=== PATIENT | male | born 1995 | race African-American/Black ===

== ENCOUNTER → 2017-04-08 | Outpatient (CLI) | payer OTHER | LOC: COL.VAS 07:43 | DX: I35.8 Other nonrheumatic aortic valve disorders (principal) ==

== ENCOUNTER 2017-12-29 07:09 | Emergency (ER) | payer OTHER ==
[~2017-12-29] VITALS: Ht 167.6 cm; Wt 97.7 kg
[2017-12-29 07:12] VITALS: BP 130/69; TEMP 98.1
[2017-12-29 08:12] LABS: COLLECTION METHOD CLEAN CATCH
[2017-12-29 08:19] LABS: MUCOUS Present /lpf; PH 5 (5-8); SQUAMOUS EPITHELIAL None Seen /hpf; URINE APPEARANCE Clear; URINE BACTERIA None Seen /hpf; URINE BILIRUBIN Negative (NEGATIVE); URINE BLOOD Negative (NEGATIVE); URINE COLOR Yellow; URINE GLUCOSE Negative (NEGATIVE); URINE KETONE Negative (NEGATIVE); URINE LEUKOCYTE ESTERASE Negative (NEGATIVE); URINE NITRATE Negative (NEGATIVE); URINE PROTEIN(semi-quant) Negative (NEGATIVE); URINE RBC 0-2 /hpf; URINE UROBILINOGEN Negative (NEGATIVE)
[2017-12-29 08:49] VITALS: PULSE 60
== END 2017-12-29 08:51 | disposition home or self-care (01) ==
LOC: COL.ER 07:09
PROVIDERS: Physician Assistant
DX: N34.2 Other urethritis (principal)

== ENCOUNTER 2018-01-02 07:34 | Emergency (ER) | payer OTHER ==
[~2018-01-02] VITALS: Ht 167.6 cm; Wt 97.3 kg
[2018-01-02 07:37] VITALS: BP 135/81; TEMP 98.1
[2018-01-02 08:16] LABS: COLLECTION METHOD CLEAN CATCH
[2018-01-02 08:31] LABS: MUCOUS Present /lpf; PH 6 (5-8); SQUAMOUS EPITHELIAL None Seen /hpf; URINE APPEARANCE Clear; URINE BACTERIA None Seen /hpf; URINE BILIRUBIN Negative (NEGATIVE); URINE BLOOD Negative (NEGATIVE); URINE COLOR Yellow; URINE GLUCOSE Negative (NEGATIVE); URINE KETONE Negative (NEGATIVE); URINE LEUKOCYTE ESTERASE Negative (NEGATIVE); URINE NITRATE Negative (NEGATIVE); URINE PROTEIN(semi-quant) Negative (NEGATIVE); URINE UROBILINOGEN Negative (NEGATIVE)
[2018-01-02] MEDS ORDERED: LEVAQUIN 750MG750 M1 PO (08:42)
[2018-01-02] MEDS ORDERED: ZOVIRAX400 MG PO (08:42)
[2018-01-02 09:46] VITALS: PULSE 90
== END 2018-01-02 09:15 | disposition home or self-care (01) ==
LOC: COL.ER 07:34
PROVIDERS: Emergency Medicine
DX: N50.9 Disorder of male genital organs, unspecified (principal); R59.0 Localized enlarged lymph nodes

== ENCOUNTER 2018-01-17 10:18 | Emergency (ER) | payer OTHER ==
[~2018-01-17] VITALS: Ht 167.6 cm; Wt 97.7 kg
[~2018-01-17 10:18] MED LIST: LEVAQUIN 750MG750 M1 PO; ZOVIRAX400 MG PO
[2018-01-17 10:32] VITALS: BP 133/71; TEMP 99.3
[2018-01-17 12:28] VITALS: PULSE 68
== END 2018-01-17 12:32 | disposition home or self-care (01) ==
LOC: COL.ER 10:18
DX: Z20.2 Contact with and (suspected) exposure to infections with a predominantly sexual mode of transmission (principal)

== ENCOUNTER 2018-02-06 23:25 | Emergency (ER) | payer OTHER ==
[~2018-02-06] VITALS: Ht 167.6 cm; Wt 97.7 kg
[2018-02-06 23:32] VITALS: BP 130/72; TEMP 99.3
[2018-02-06] MEDS ORDERED: AMOXICILLIN 8751 TAB PO (23:33)
[2018-02-07 01:05] VITALS: PULSE 78
== END 2018-02-07 01:06 | disposition home or self-care (01) ==
LOC: COL.ER 23:25
DX: S61.411A Laceration without foreign body of right hand, initial encounter (principal); T81.4XXA Infection following a procedure, initial encounter; Y04.0XXA Assault by unarmed brawl or fight, initial encounter
CPT/HCPCS: J0295

== ENCOUNTER 2018-07-25 05:24 | Day surgery (SDC) | payer OTHER ==
[~2018-07-25] VITALS: Ht 167.6 cm; Wt 104.3 kg
[2018-07-25] VITALS (9 sets, daily range): BP systolic 125–136; BP diastolic 43–71; PULSE 79–98; TEMP 98.7–99.2
[~2018-07-25 05:24] MED LIST changes: +AMOXICILLIN 8751 TAB PO
== END 2018-07-25 13:41 | disposition home or self-care (01) ==
LOC: SDCO 05:24
DX: S83.512A Sprain of anterior cruciate ligament of left knee, initial encounter (principal); Z82.5 Family history of asthma and other chronic lower respiratory diseases; Z82.49 Family history of ischemic heart disease and other diseases of the circulatory system; Z82.61 Family history of arthritis; G89.18 Other acute postprocedural pain
CPT/HCPCS: C1713; J0171; J0690; J1170; J2250; J2405; J2704; J2795; J3010; J7120

== ENCOUNTER → 2018-08-15 | Outpatient (CLI) | payer OTHER | LOC: COL.VAS 08:00 | DX: M79.89 Other specified soft tissue disorders (principal) ==

== ENCOUNTER → 2018-09-28 | Outpatient (CLI) | payer OTHER ==
[~2018-09-28] MED LIST changes: +NORCO 325 MG-51 TAB PO
[2018-09-28 13:06] LABS: BASO % 0.4 % (0.0-2.0); EOS # 0.1 (0.0-0.7); GRAN # 4.3 (1.4-6.5); GRAN % 54.1 % (42.2-75.2); HEMATOCRIT 42.2 % (42.0-52.0); HEMOGLOBIN 13.4 g/dl (13.5-18.0); LYMPH # 2.3 (1.2-3.4); LYMPH % 29.3 % (20.0-51.0); MEAN CELL VOLUME 72 fl (80.0-100.0); MEAN CORPUSCULAR HEMOGLOBIN 23 pg (27.0-31.0); MEAN CORPUSCULAR HGB CONC 32 g/dl (33.0-37.0); MEAN PLATELET VOLUME 9.8 fl (7.4-10.4); MONO # 1.1 (0.1-0.6); MONO % 14.3 % (1.7-9.3); PLATELET COUNT 438 K/mm3 (130-400); RED BLOOD COUNT 5.86 M/mm3 (4.20-5.60); REDCELL DISTRIBUTION WIDTH-CV 15.3 % (11.5-14.5)
[2018-09-28 13:27] LABS: ERYTHROCYTE SEDIMENTATION RATE 35 mm/hr (0-15)
== END ==
LOC: COL.LAB 12:11
PROVIDERS: Orthopaedic Surgery Sports Medicine
DX: Z01.812 Encounter for preprocedural laboratory examination (principal); M25.562 Pain in left knee

== ENCOUNTER → 2018-10-03 | Outpatient (REF) | LOC: ZMSC 12:57 | DX: Z01.89 Encounter for other specified special examinations (principal) ==

== ENCOUNTER → 2018-11-10 | Outpatient (CLI) | payer OTHER | LOC: COL.VAS 12:51 | DX: Z13.6 Encounter for screening for cardiovascular disorders (principal); M79.662 Pain in left lower leg; Z98.890 Other specified postprocedural states ==

== ENCOUNTER → 2018-11-13 | Outpatient (CLI) | payer OTHER ==
[2018-11-13 15:44] LABS: BASO % 0.3 % (0.0-2.0); EOS # 0.2 (0.0-0.7); EOS % 3.7 % (0-4.0); GRAN # 2.8 (1.4-6.5); GRAN % 46.8 % (42.2-75.2); HEMATOCRIT 40.3 % (42.0-52.0); HEMOGLOBIN 12.5 g/dl (13.5-18.0); LYMPH # 2.3 (1.2-3.4); LYMPH % 38.8 % (20.0-51.0); MEAN CELL VOLUME 72 fl (80.0-100.0); MEAN CORPUSCULAR HEMOGLOBIN 22 pg (27.0-31.0); MEAN CORPUSCULAR HGB CONC 31 g/dl (33.0-37.0); MEAN PLATELET VOLUME 9.4 fl (7.4-10.4); MONO # 0.6 (0.1-0.6); MONO % 10.2 % (1.7-9.3); PLATELET COUNT 312 K/mm3 (130-400); RED BLOOD COUNT 5.58 M/mm3 (4.20-5.60); REDCELL DISTRIBUTION WIDTH-CV 16.5 % (11.5-14.5)
[2018-11-13 16:22] LABS: ERYTHROCYTE SEDIMENTATION RATE 16 mm/hr (0-15)
== END ==
LOC: COL.LAB 15:21
PROVIDERS: Orthopaedic Surgery Sports Medicine
DX: M25.462 Effusion, left knee (principal); Z98.890 Other specified postprocedural states

== ENCOUNTER 2018-11-29 10:57 | Inpatient (IN) | payer OTHER | END 2018-11-30 23:00 | disposition home or self-care (01) | DRG 863 | LOC: SURG 10:57 | PROVIDERS: ADMIT Orthopaedic Surgery Sports Medicine | DX: T81.41XA Infection following a procedure, superficial incisional surgical site, initial encounter (principal); B95.61 Methicillin susceptible Staphylococcus aureus infection as the cause of diseases classified elsewhere; F41.8 Other specified anxiety disorders ==

== ENCOUNTER 2018-12-03 08:05 | Outpatient (RCR) | payer OTHER ==
[2018-12-01 08:43] VITALS: BP 122/75; PULSE 92; TEMP 98.5
[2018-12-02 08:28] VITALS: BP 132/70; PULSE 98; TEMP 98.6
[~2018-12-03] VITALS: Ht 167.6 cm; Wt 99.0 kg
[~2018-12-03 08:05] MED LIST changes: +ASPIRIN E.C. 8181 MG PO; +CEFAZOLIN SODI100 ML IV; +DILAUDID 2MG/2 MG/M1 IV; +MOBIC15 MG PO; +ROCEPHIN 2GM VIAL21 IJ
[2018-12-04 08:35] LABS: HEMATOCRIT 40.8 % (42.0-52.0); HEMOGLOBIN 12.5 g/dl (13.5-18.0); MEAN CELL VOLUME 72 fl (80.0-100.0); MEAN CORPUSCULAR HEMOGLOBIN 22 pg (27.0-31.0); MEAN CORPUSCULAR HGB CONC 31 g/dl (33.0-37.0); PLATELET COUNT 271 K/mm3 (130-400); RED BLOOD COUNT 5.64 M/mm3 (4.20-5.60); REDCELL DISTRIBUTION WIDTH-CV 16.5 % (11.5-14.5)
[2018-12-04 08:39] VITALS: BP 116/60; PULSE 81; TEMP 98.7
--- NOTE | 2018-12-04 08:45 | NUR ---
Oozing noted from incision on LLE. Covered with gauze and wrapped with coban. Pt is going to Dr. Quezada's office after abx today.
[2018-12-04 08:47] LABS: ALBUMIN 4.4 gm/dL (3.5-5.0); BILIRUBIN,TOTAL 0.2 mg/dL (0.0-1.0); C-REACTIVE PROTEIN 1.4 mg/dL (0.0-0.9); CALCIUM 9.3 mg/dL (8.4-10.2); CREATININE, serum 0.89 mg/dL (0.66-1.25); POTASSIUM 3.9 mmol/L (3.4-5.0); TOTAL PROTEIN 8.1 gm/dL (6.4-8.2)
[2018-12-04 09:01] LABS: ERYTHROCYTE SEDIMENTATION RATE 7 mm/hr (0-15)
[2018-12-05 08:34] VITALS: BP 109/70; PULSE 77; TEMP 98.3
--- NOTE | 2018-12-06 08:27 | NUR ---
Spoke with Jelena,Surgical pathology secretary/transcriptionist to confirm pt to have surg.Per report of pt he ruthy ellison.Requested from Jelena new orders for abx to continue if pt stays overnight in hospital.
[2018-12-08] MEDS ORDERED: CUBICIN 500MG500 MG IV (16:14)
[2018-12-12] MEDS ORDERED: ROCEPHIN 2GM VIAL21 IJ (13:22)
== END 2018-12-06 15:22 | disposition home or self-care (01) ==
LOC: EUO 12-04 08:00
PROVIDERS: Orthopaedic Surgery Sports Medicine
DX: M24.20 Disorder of ligament, unspecified site (principal); B99.9 Unspecified infectious disease
CPT/HCPCS: J0696

== ENCOUNTER 2018-12-12 13:28 | Emergency (ER) | payer OTHER ==
[~2018-12-12] VITALS: Ht 167.6 cm; Wt 97.7 kg
[~2018-12-12 13:28] MED LIST changes: +CUBICIN 500MG500 MG IV
[2018-12-12 13:36] VITALS: BP 123/74; PULSE 71; TEMP 98.4
== END 2018-12-12 17:35 | disposition left against medical advice (07) ==
LOC: COL.ER 13:28
DX: R07.9 Chest pain, unspecified (principal)
CPT/HCPCS: J1885; J7030

== ENCOUNTER 2018-12-24 12:24 | Outpatient (RCR) | payer OTHER ==
[2018-12-11 14:07] VITALS: BP 107/55; PULSE 81; TEMP 98.9
[2018-12-11 14:09] LABS: HEMATOCRIT 41.5 % (42.0-52.0); HEMOGLOBIN 12.8 g/dl (13.5-18.0); MEAN CELL VOLUME 72 fl (80.0-100.0); MEAN CORPUSCULAR HEMOGLOBIN 22 pg (27.0-31.0); MEAN CORPUSCULAR HGB CONC 31 g/dl (33.0-37.0); MEAN PLATELET VOLUME 9.5 fl (7.4-10.4); PLATELET COUNT 290 K/mm3 (130-400); RED BLOOD COUNT 5.75 M/mm3 (4.20-5.60); REDCELL DISTRIBUTION WIDTH-CV 17.2 % (11.5-14.5)
[2018-12-11 14:21] LABS: ALANINE AMINOTRANSFERASE 25 U/L (21-72); ALBUMIN 4.5 gm/dL (3.5-5.0); ALKALINE PHOSPHATASE 62 U/L (50-136); ANION GAP 8 mmol/L (7-16); AST,SGOT 32 U/L (15-37); BILIRUBIN,TOTAL 0.4 mg/dL (0.0-1.0); BLOOD UREA NITROGEN 15 mg/dL (9-20); CALCIUM 9.3 mg/dL (8.4-10.2); CARBON DIOXIDE 29 mmol/L (22-30); CHLORIDE 103 mmol/L (98-107); CREATININE, serum 0.86 mg/dL (0.66-1.25); GLUCOSE 98 mg/dL (74-106); POTASSIUM 3.6 mmol/L (3.4-5.0); SODIUM 140 mmol/L (137-145); TOTAL PROTEIN 8.2 gm/dL (6.4-8.2)
[2018-12-11 14:22] LABS: C-REACTIVE PROTEIN < 0.5 mg/dL (0.0-0.9)
[2018-12-11 14:33] LABS: ERYTHROCYTE SEDIMENTATION RATE 1 mm/hr (0-15)
[2018-12-12 13:00] VITALS: BP 123/61; PULSE 71; TEMP 98
[2018-12-13 12:16] VITALS: BP 116/82; PULSE 73; TEMP 98.4
[2018-12-14 11:20] VITALS: BP 138/80; PULSE 79; TEMP 98
--- NOTE | 2018-12-14 11:29 | NUR ---
per pt report he has had some drainage from knee.Per pt report he is going to Ortho office after this apt to see if they will look at knee.
--- NOTE | 2018-12-14 12:02 | NUR ---
Pt inquired if he was sopose to have apt with Dr. Jovel.Per pt he has not been given an apt time.This nurse called office,spoke with Molly.Per her report pt had been receiveing wound care, missed one apt,cancelled another.Per Molly she reports pt sopose to schedule apt with Dr. Jovel.This nurse gave pt office number to call and clarify.
[2018-12-15 10:08] VITALS: BP 129/58; PULSE 70; TEMP 98.4
--- NOTE | 2018-12-15 10:25 | NUR ---
Pt refused to go to ED for chest pain. Pt is going to Dr. Loza office now. [facility]. Pt agreed to go to ED at [place] today or our ED if weather prohibits travel to [place].
--- NOTE | 2018-12-15 10:30 | NUR ---
L FA PIV wrapped with coban and left in for abx tomorrow. Pt discharged per ambulation.
[2018-12-16 08:41] VITALS: BP 136/63; PULSE 66; TEMP 98.3
[2018-12-17 08:46] VITALS: BP 137/94; PULSE 58; TEMP 98.2
[2018-12-18 10:50] VITALS: BP 120/67; PULSE 70; TEMP 98.3
[2018-12-18 11:03] LABS: HEMATOCRIT 41.3 % (42.0-52.0); HEMOGLOBIN 12.8 g/dl (13.5-18.0); MEAN CELL VOLUME 73 fl (80.0-100.0); MEAN CORPUSCULAR HEMOGLOBIN 23 pg (27.0-31.0); MEAN CORPUSCULAR HGB CONC 31 g/dl (33.0-37.0); MEAN PLATELET VOLUME 9.8 fl (7.4-10.4); PLATELET COUNT 258 K/mm3 (130-400); REDCELL DISTRIBUTION WIDTH-CV 17.5 % (11.5-14.5)
[2018-12-18 11:17] LABS: ALANINE AMINOTRANSFERASE 31 U/L (21-72); ALBUMIN 4.4 gm/dL (3.5-5.0); ALKALINE PHOSPHATASE 60 U/L (50-136); ANION GAP 9 mmol/L (7-16); AST,SGOT 31 U/L (15-37); BILIRUBIN,TOTAL 0.5 mg/dL (0.0-1.0); BLOOD UREA NITROGEN 15 mg/dL (9-20); CALCIUM 9.3 mg/dL (8.4-10.2); CARBON DIOXIDE 29 mmol/L (22-30); CHLORIDE 103 mmol/L (98-107); CREATINE KINASE 290 U/L (55-170); CREATININE, serum 0.92 mg/dL (0.66-1.25); GLUCOSE 91 mg/dL (74-106); POTASSIUM 3.9 mmol/L (3.4-5.0); SODIUM 141 mmol/L (137-145); TOTAL PROTEIN 8.2 gm/dL (6.4-8.2)
[2018-12-18 11:23] LABS: ERYTHROCYTE SEDIMENTATION RATE 5 mm/hr (0-15)
[2018-12-18 11:43] LABS: C-REACTIVE PROTEIN < 0.5 mg/dL (0.0-0.9)
[2018-12-19 09:50] VITALS: BP 150/97; PULSE 75; TEMP 98.7
[2018-12-20 10:20] VITALS: BP 121/47; PULSE 69; TEMP 98.3
[2018-12-21 10:30] VITALS: BP 118/62; PULSE 70; TEMP 98.6
[2018-12-22 10:35] VITALS: BP 138/87; PULSE 66; TEMP 97.1
[~2018-12-24] VITALS: Ht 167.6 cm; Wt 100.9 kg
--- NOTE | 2018-12-25 10:05 | NUR ---
Upon arrival to 13 pt not in room.
[2018-12-25 13:05] VITALS: BP 120/65; PULSE 95; TEMP 97
[2018-12-25 13:56] LABS: HEMATOCRIT 40.3 % (42.0-52.0); HEMOGLOBIN 12.4 g/dl (13.5-18.0); MEAN CELL VOLUME 73 fl (80.0-100.0); MEAN CORPUSCULAR HEMOGLOBIN 23 pg (27.0-31.0); MEAN CORPUSCULAR HGB CONC 31 g/dl (33.0-37.0); MEAN PLATELET VOLUME 10.5 fl (7.4-10.4); PLATELET COUNT 254 K/mm3 (130-400); RED BLOOD COUNT 5.52 M/mm3 (4.20-5.60); REDCELL DISTRIBUTION WIDTH-CV 17.2 % (11.5-14.5)
[2018-12-25 14:05] LABS: ALANINE AMINOTRANSFERASE 26 U/L (21-72); ALBUMIN 4.5 gm/dL (3.5-5.0); ALKALINE PHOSPHATASE 60 U/L (50-136); ANION GAP 9 mmol/L (7-16); AST,SGOT 29 U/L (15-37); BILIRUBIN,TOTAL 0.4 mg/dL (0.0-1.0); BLOOD UREA NITROGEN 15 mg/dL (9-20); CALCIUM 9.4 mg/dL (8.4-10.2); CARBON DIOXIDE 26 mmol/L (22-30); CHLORIDE 105 mmol/L (98-107); CREATINE KINASE 421 U/L (55-170); CREATININE, serum 0.94 mg/dL (0.66-1.25); GLUCOSE 95 mg/dL (74-106); POTASSIUM 3.7 mmol/L (3.4-5.0); SODIUM 140 mmol/L (137-145)
[2018-12-25 14:10] LABS: C-REACTIVE PROTEIN < 0.5 mg/dL (0.0-0.9)
[2018-12-26 08:03] VITALS: BP 141/73; PULSE 82; TEMP 98.4
[2018-12-27 08:19] VITALS: BP 139/88; PULSE 76; TEMP 97.9
[2018-12-28 08:20] VITALS: BP 111/71; PULSE 71; TEMP 98.4
[2018-12-29 08:40] VITALS: BP 129/67; PULSE 74; TEMP 98.2
[2018-12-30 08:00] VITALS: BP 103/73; PULSE 85; TEMP 97.9
[2018-12-31 07:27] VITALS: BP 120/72; PULSE 75; TEMP 97.4
[2019-01-01 08:37] VITALS: BP 133/76; PULSE 68; TEMP 98.1
[2019-01-01 09:06] LABS: HEMATOCRIT 42.1 % (42.0-52.0); HEMOGLOBIN 13.1 g/dl (13.5-18.0); MEAN CELL VOLUME 74 fl (80.0-100.0); MEAN CORPUSCULAR HEMOGLOBIN 23 pg (27.0-31.0); MEAN CORPUSCULAR HGB CONC 31 g/dl (33.0-37.0); PLATELET COUNT 231 K/mm3 (130-400); RED BLOOD COUNT 5.71 M/mm3 (4.20-5.60); REDCELL DISTRIBUTION WIDTH-CV 17.6 % (11.5-14.5)
--- NOTE | 2019-01-01 09:12 | NUR ---
PER PT REPORT THIS AM HIS INCISION OPENED AFTER STICHES REMOVED.PT REPORTS HE HAS NOT NOTIFIED PHYSICIAN YET. THIS NURSE OBSERVED APROXIMATELY ONE INCH AREA ALONG INCISION,NO DRAINAGE OBSERVED.PER PT IT HAS "BLED SOME." THIS NURSE CLEANSED WITH SALINE AND STERILE GAUZE,APPLIED MEPELEX BORDER TO PREVENT PANTS FROM RUBBING.INSTRUCTED PT TO CALL DR CARRANZA TO REPORT.THIS NURSE ALSO CALLED ORTHO AND SPOKE WITH NURSE ACE FOR DR CARRANZA AND REPORTED SALINE USED ON AREA WITH STERILE GAUZE,MEPELEX APPLIED UNTIL PT SEES HER TODAY. PER HER REPORT PT IS COMMING TO OFFICE FOR HER TO SEE THIS MORNING.
[2019-01-01 09:19] LABS: ALBUMIN 4.4 gm/dL (3.5-5.0); BILIRUBIN,TOTAL 0.4 mg/dL (0.0-1.0); C-REACTIVE PROTEIN 0.6 mg/dL (0.0-0.9); CALCIUM 9.3 mg/dL (8.4-10.2); CREATININE, serum 0.88 mg/dL (0.66-1.25); POTASSIUM 3.8 mmol/L (3.4-5.0); TOTAL PROTEIN 7.9 gm/dL (6.4-8.2)
[2019-01-01 09:49] LABS: ERYTHROCYTE SEDIMENTATION RATE 1 mm/hr (0-15)
[2019-01-02 08:42] VITALS: BP 121/80; PULSE 63; TEMP 97.7
[2019-01-03 08:00] VITALS: BP 144/68; PULSE 78; TEMP 97.6
--- NOTE | 2019-01-08 06:30 | NUR ---
Spoke with pt and per pt report he is still out of town and will return on tuesday.
--- NOTE | 2019-01-08 06:45 | NUR ---
Pt did not show for today's apt.
[2019-01-10 06:57] LABS: HEMATOCRIT 41.4 % (42.0-52.0); HEMOGLOBIN 13.1 g/dl (13.5-18.0); MEAN CELL VOLUME 73 fl (80.0-100.0); MEAN CORPUSCULAR HEMOGLOBIN 23 pg (27.0-31.0); MEAN CORPUSCULAR HGB CONC 32 g/dl (33.0-37.0); MEAN PLATELET VOLUME 10.1 fl (7.4-10.4); PLATELET COUNT 239 K/mm3 (130-400); RED BLOOD COUNT 5.66 M/mm3 (4.20-5.60); REDCELL DISTRIBUTION WIDTH-CV 16.3 % (11.5-14.5)
[2019-01-10 07:01] VITALS: BP 134/50; PULSE 76; TEMP 98.8
[2019-01-10 07:19] LABS: ALANINE AMINOTRANSFERASE 29 U/L (21-72); ALBUMIN 4.4 gm/dL (3.5-5.0); ALKALINE PHOSPHATASE 57 U/L (50-136); ANION GAP 8 mmol/L (7-16); AST,SGOT 33 U/L (15-37); BILIRUBIN,TOTAL 0.5 mg/dL (0.0-1.0); BLOOD UREA NITROGEN 12 mg/dL (9-20); CARBON DIOXIDE 25 mmol/L (22-30); CHLORIDE 106 mmol/L (98-107); CREATINE KINASE 513 U/L (55-170); CREATININE, serum 0.91 mg/dL (0.66-1.25); GLUCOSE 101 mg/dL (74-106); POTASSIUM 3.7 mmol/L (3.4-5.0); SODIUM 139 mmol/L (137-145); TOTAL PROTEIN 7.6 gm/dL (6.4-8.2)
[2019-01-10 07:21] LABS: C-REACTIVE PROTEIN < 0.5 mg/dL (0.0-0.9)
[2019-01-10 07:31] LABS: ERYTHROCYTE SEDIMENTATION RATE 1 mm/hr (0-15)
[2019-01-11 06:27] VITALS: BP 127/69; PULSE 88; TEMP 98.2
== END 2019-01-12 13:56 | disposition home or self-care (01) ==
LOC: EUO 12-25 10:00
PROVIDERS: Internal Medicine Infectious Disease; Orthopaedic Surgery Sports Medicine
DX: T81.31XA Disruption of external operation (surgical) wound, not elsewhere classified, initial encounter (principal); A49.02 Methicillin resistant Staphylococcus aureus infection, unspecified site; F32.9 Major depressive disorder, single episode, unspecified
CPT/HCPCS: J0696; J0878

== ENCOUNTER → 2019-01-19 | Outpatient (CLI) | payer OTHER ==
[2019-01-19 17:09] LABS: BASO % 0.6 % (0.0-2.0); EOS # 0.3 (0.0-0.7); GRAN # 2.1 (1.4-6.5); GRAN % 39.7 % (42.2-75.2); HEMATOCRIT 42.1 % (42.0-52.0); HEMOGLOBIN 13.5 g/dl (13.5-18.0); LYMPH # 2.3 (1.2-3.4); LYMPH % 44.6 % (20.0-51.0); MEAN CELL VOLUME 74 fl (80.0-100.0); MEAN CORPUSCULAR HEMOGLOBIN 24 pg (27.0-31.0); MEAN CORPUSCULAR HGB CONC 32 g/dl (33.0-37.0); MONO # 0.5 (0.1-0.6); MONO % 9.9 % (1.7-9.3); PLATELET COUNT 225 K/mm3 (130-400); RED BLOOD COUNT 5.71 M/mm3 (4.20-5.60); REDCELL DISTRIBUTION WIDTH-CV 15.7 % (11.5-14.5)
[2019-01-19 17:24] LABS: ALANINE AMINOTRANSFERASE 24 U/L (21-72); ALBUMIN 4.5 gm/dL (3.5-5.0); ALKALINE PHOSPHATASE 64 U/L (50-136); ANION GAP 10 mmol/L (7-16); AST,SGOT 33 U/L (15-37); BILIRUBIN,TOTAL 0.3 mg/dL (0.0-1.0); BLOOD UREA NITROGEN 14 mg/dL (9-20); CALCIUM 9.4 mg/dL (8.4-10.2); CARBON DIOXIDE 25 mmol/L (22-30); CHLORIDE 104 mmol/L (98-107); CREATININE, serum 0.98 mg/dL (0.66-1.25); GLUCOSE 95 mg/dL (74-106); POTASSIUM 3.7 mmol/L (3.4-5.0); SODIUM 139 mmol/L (137-145); TOTAL PROTEIN 7.7 gm/dL (6.4-8.2)
[2019-01-19 17:26] LABS: C-REACTIVE PROTEIN < 0.5 mg/dL (0.0-0.9)
[2019-01-19 17:34] LABS: ERYTHROCYTE SEDIMENTATION RATE 1 mm/hr (0-15)
== END ==
LOC: COL.LAB 16:04
PROVIDERS: Nurse Practitioner
DX: T81.31XA Disruption of external operation (surgical) wound, not elsewhere classified, initial encounter (principal)

== ENCOUNTER 2019-03-19 02:27 | Emergency (ER) | payer OTHER ==
[~2019-03-19] VITALS: Ht 167.6 cm; Wt 100.0 kg
[2019-03-19 02:41] VITALS: TEMP 98.2
[2019-03-19 03:18] VITALS: BP 130/88; PULSE 69
== END 2019-03-19 03:15 | disposition home or self-care (01) ==
LOC: COL.ER 02:27
DX: S63.614A Unspecified sprain of right ring finger, initial encounter (principal); X58.XXXA Exposure to other specified factors, initial encounter; Y92.009 Unspecified place in unspecified non-institutional (private) residence as the place of occurrence of the external cause

== ENCOUNTER → 2019-04-11 | Outpatient (CLI) | payer OTHER ==
[2019-04-11 12:44] LABS: BASO % 0.5 % (0.0-2.0); EOS # 0.2 (0.0-0.7); GRAN # 1.9 (1.4-6.5); GRAN % 45.1 % (42.2-75.2); HEMATOCRIT 45.5 % (42.0-52.0); HEMOGLOBIN 14.5 g/dl (13.5-18.0); LYMPH # 1.7 (1.2-3.4); LYMPH % 39.5 % (20.0-51.0); MEAN CELL VOLUME 73 fl (80.0-100.0); MEAN CORPUSCULAR HEMOGLOBIN 23 pg (27.0-31.0); MEAN CORPUSCULAR HGB CONC 32 g/dl (33.0-37.0); MONO # 0.5 (0.1-0.6); MONO % 10.7 % (1.7-9.3); PLATELET COUNT 257 K/mm3 (130-400); RED BLOOD COUNT 6.28 M/mm3 (4.20-5.60); REDCELL DISTRIBUTION WIDTH-CV 14.2 % (11.5-14.5)
[2019-04-11 13:14] LABS: ERYTHROCYTE SEDIMENTATION RATE 2 mm/hr (0-15)
== END ==
LOC: COL.LAB 12:16
PROVIDERS: Orthopaedic Surgery Sports Medicine
DX: Z98.890 Other specified postprocedural states (principal)

== ENCOUNTER → 2019-05-22 | Outpatient (CLI) | payer OTHER ==
[2019-05-22 16:13] LABS: BASO % 0.3 % (0.0-2.0); EOS # 0.3 (0.0-0.7); GRAN # 2.8 (1.4-6.5); GRAN % 46.8 % (42.2-75.2); HEMATOCRIT 43.6 % (42.0-52.0); HEMOGLOBIN 13.6 g/dl (13.5-18.0); LYMPH # 2.1 (1.2-3.4); LYMPH % 35.1 % (20.0-51.0); MEAN CELL VOLUME 75 fl (80.0-100.0); MEAN CORPUSCULAR HEMOGLOBIN 23 pg (27.0-31.0); MEAN CORPUSCULAR HGB CONC 31 g/dl (33.0-37.0); MEAN PLATELET VOLUME 10.1 fl (7.4-10.4); MONO # 0.8 (0.1-0.6); MONO % 12.6 % (1.7-9.3); PLATELET COUNT 230 K/mm3 (130-400); RED BLOOD COUNT 5.85 M/mm3 (4.20-5.60); REDCELL DISTRIBUTION WIDTH-CV 16.2 % (11.5-14.5)
[2019-05-22 16:41] LABS: ERYTHROCYTE SEDIMENTATION RATE 1 mm/hr (0-15)
== END ==
LOC: COL.LAB 15:32
PROVIDERS: Orthopaedic Surgery Sports Medicine
DX: Z98.890 Other specified postprocedural states (principal)

== ENCOUNTER → 2019-11-06 | Outpatient (CLI) | payer OTHER ==
[2019-11-06 13:16] LABS: BASO % 0.3 % (0.0-2.0); EOS # 0.1 (0.0-0.7); EOS % 2.4 % (0-4.0); GRAN # 1.1 (1.4-6.5); GRAN % 36.8 % (42.2-75.2); HEMATOCRIT 47.4 % (42.0-52.0); HEMOGLOBIN 14.6 g/dl (13.5-18.0); LYMPH # 1.3 (1.2-3.4); LYMPH % 45.5 % (20.0-51.0); MEAN CELL VOLUME 75 fl (80.0-100.0); MEAN CORPUSCULAR HEMOGLOBIN 23 pg (27.0-31.0); MEAN CORPUSCULAR HGB CONC 31 g/dl (33.0-37.0); MONO # 0.4 (0.1-0.6); PLATELET COUNT 189 K/mm3 (130-400); RED BLOOD COUNT 6.36 M/mm3 (4.20-5.60); REDCELL DISTRIBUTION WIDTH-CV 14.5 % (11.5-14.5)
[2019-11-06 13:36] LABS: ERYTHROCYTE SEDIMENTATION RATE 1 mm/hr (0-15)
== END ==
LOC: COL.LAB 12:48
PROVIDERS: Orthopaedic Surgery Sports Medicine
DX: M25.562 Pain in left knee (principal)

== ENCOUNTER 2020-03-05 13:44 | Emergency (ER) | payer OTHER ==
[~2020-03-05] VITALS: Ht 167.6 cm; Wt 98.6 kg
[~2020-03-05 13:44] MED LIST changes: -PROTONIX 40MG T40 MG PO
[2020-03-05 13:51] VITALS: TEMP 98.8
[2020-03-05 14:18] LABS: BASO # 0.1 (0.0-0.2); BASO % 0.8 % (0.0-2.0); EOS # 0.3 (0.0-0.7); EOS % 4.1 % (0-4.0); GRAN # 3.4 (1.4-6.5); GRAN % 52.8 % (42.2-75.2); HEMATOCRIT 46.3 % (42.0-52.0); HEMOGLOBIN 14.5 g/dl (13.5-18.0); LYMPH % 30.7 % (20.0-51.0); MEAN CELL VOLUME 74 fl (80.0-100.0); MEAN CORPUSCULAR HEMOGLOBIN 23 pg (27.0-31.0); MEAN CORPUSCULAR HGB CONC 31 g/dl (33.0-37.0); MEAN PLATELET VOLUME 9.9 fl (7.4-10.4); MONO # 0.7 (0.1-0.6); MONO % 10.8 % (1.7-9.3); PLATELET COUNT 249 K/mm3 (130-400); RED BLOOD COUNT 6.29 M/mm3 (4.20-5.60); REDCELL DISTRIBUTION WIDTH-CV 15.9 % (11.5-14.5)
[2020-03-05 14:34] LABS: ALBUMIN 4.9 gm/dL (3.5-5.0); BILIRUBIN,TOTAL 0.5 mg/dL (0.0-1.0); C-REACTIVE PROTEIN 0.8 mg/dL (0.0-0.9); CALCIUM 9.9 mg/dL (8.4-10.2); CREATININE, serum 1.01 (0.66-1.25); TOTAL PROTEIN 8.5 gm/dL (6.4-8.2)
[2020-03-05] MEDS ORDERED: PROTONIX 40MG T40 MG PO (15:10)
[2020-03-05 15:24] VITALS: BP 131/90; PULSE 76
== END 2020-03-05 15:24 | disposition home or self-care (01) ==
LOC: COL.ER 13:44
PROVIDERS: Emergency Medicine
DX: R13.10 Dysphagia, unspecified (principal)
CPT/HCPCS: J2405

== ENCOUNTER → 2020-03-05 | Outpatient (CLI) | payer OTHER ==
[~2020-03-05] MED LIST changes: +PROTONIX 40MG T40 MG PO
[2020-03-05 13:02] LABS: HEMATOCRIT 46.2 % (42.0-52.0); HEMOGLOBIN 14.1 g/dl (13.5-18.0); MEAN CELL VOLUME 74 fl (80.0-100.0); MEAN CORPUSCULAR HEMOGLOBIN 23 pg (27.0-31.0); MEAN CORPUSCULAR HGB CONC 31 g/dl (33.0-37.0); MEAN PLATELET VOLUME 9.7 fl (7.4-10.4); PLATELET COUNT 238 K/mm3 (130-400); RED BLOOD COUNT 6.24 M/mm3 (4.20-5.60); REDCELL DISTRIBUTION WIDTH-CV 16.6 % (11.5-14.5)
[2020-03-05 13:48] LABS: ERYTHROCYTE SEDIMENTATION RATE 1 mm/hr (0-15)
== END ==
LOC: COL.LAB 12:32
PROVIDERS: Orthopaedic Surgery Sports Medicine
DX: Z47.2 Encounter for removal of internal fixation device (principal)

== ENCOUNTER 2021-01-28 23:13 | Emergency (ER) | payer OTHER ==
[~2021-01-28] VITALS: Ht 167.6 cm; Wt 113.6 kg
[~2021-01-28 23:13] MED LIST changes: +PROTONIX 40MG T40 MG PO
[2021-01-28 23:17] VITALS: TEMP 97.6
[2021-01-29 00:03] LABS: BASO % 0.6 % (0.0-2.0); EOS # 0.2 (0.0-0.7); EOS % 3.7 % (0-4.0); GRAN # 2.3 (1.4-6.5); GRAN % 43.4 % (42.2-75.2); HEMATOCRIT 44.6 % (42.0-52.0); LYMPH # 2.3 (1.2-3.4); LYMPH % 41.8 % (20.0-51.0); MEAN CELL VOLUME 72 fl (80.0-100.0); MEAN CORPUSCULAR HEMOGLOBIN 23 pg (27.0-31.0); MEAN CORPUSCULAR HGB CONC 31 g/dl (33.0-37.0); MONO # 0.5 (0.1-0.6); MONO % 9.9 % (1.7-9.3); PLATELET COUNT 239 K/mm3 (130-400); RED BLOOD COUNT 6.17 M/mm3 (4.20-5.60); REDCELL DISTRIBUTION WIDTH-CV 14.9 % (11.5-14.5)
[2021-01-29 00:04] LABS: ALANINE AMINOTRANSFERASE 40 U/L (4-49); ALKALINE PHOSPHATASE 48 U/L (50-136); ANION GAP 11 mmol/L (7-16); AST,SGOT 49 U/L (15-37); BILIRUBIN,TOTAL 0.6 mg/dL (0.0-1.0); BLOOD UREA NITROGEN 15 mg/dL (9-20); CALCIUM 9.5 mg/dL (8.4-10.2); CARBON DIOXIDE 26 mmol/L (22-30); CHLORIDE 102 mmol/L (98-107); CREATININE, serum 1.15 (0.66-1.25); GLUCOSE 95 mg/dL (74-106); POTASSIUM 3.7 mmol/L (3.4-5.0); SODIUM 139 mmol/L (137-145); TOTAL PROTEIN 8.9 gm/dL (6.4-8.2)
[2021-01-29 00:16] LABS: TROPONIN-I < 0.012 ng/mL (0.000-0.035)
[2021-01-29 00:42] VITALS: BP 129/78; PULSE 83
== END 2021-01-29 00:41 | disposition home or self-care (01) ==
LOC: COL.ER 23:13
PROVIDERS: Emergency Medicine
DX: R07.89 Other chest pain (principal); M54.6 Pain in thoracic spine
CPT/HCPCS: J1885

== ENCOUNTER 2021-02-20 20:38 | Emergency (ER) | payer SELFPAY ==
[2021-02-20 20:49] VITALS: BP 142/83
[2021-02-20 21:21] VITALS: PULSE 75
== END 2021-02-20 21:22 | disposition home or self-care (01) ==
LOC: COL.ER 20:38
DX: Z77.21 Contact with and (suspected) exposure to potentially hazardous body fluids (principal)

== ENCOUNTER 2021-11-13 20:18 | Emergency (ER) | payer OTHER ==
[~2021-11-13] VITALS: Ht 172.7 cm; Wt 109.1 kg
[2021-11-13 20:28] VITALS: TEMP 98.3
[2021-11-13 21:59] VITALS: BP 129/71; PULSE 68
== END 2021-11-13 22:00 | disposition home or self-care (01) ==
LOC: COL.ER 20:18
DX: G89.18 Other acute postprocedural pain (principal); Z90.89 Acquired absence of other organs
CPT/HCPCS: J1100; J2405; J7030

== ENCOUNTER 2022-03-14 01:57 | Emergency (ER) | payer OTHER ==
[~2022-03-14] VITALS: Ht 167.6 cm; Wt 112.3 kg
[2022-03-14 02:23] VITALS: TEMP 98.6
[2022-03-14] MEDS ORDERED: AMOXICILLIN 8751 TAB PO (02:35)
[2022-03-14 03:00] VITALS: BP 145/80; PULSE 88
== END 2022-03-14 03:00 | disposition home or self-care (01) ==
LOC: COL.ER 01:57
DX: S61.411A Laceration without foreign body of right hand, initial encounter (principal); Y04.0XXA Assault by unarmed brawl or fight, initial encounter